=== PATIENT | male | born 1990 | race Caucasian/White ===

== ENCOUNTER 2023-01-12 08:45 | Emergency (ER) | payer MEDICAID ==
[~2023-01-12] VITALS: Ht 182.9 cm; Wt 58.4 kg
[2023-01-12 09:00] VITALS: BP 116/76; PULSE 74; RESP 16; TEMP 98.2; O2SAT 98
== END 2023-01-12 09:33 | disposition home or self-care (01) ==
LOC: ER 08:45
DX: F10.20 Alcohol dependence, uncomplicated (principal); F17.200 Nicotine dependence, unspecified, uncomplicated; Y90.9 Presence of alcohol in blood, level not specified
CPT/HCPCS: 99281